=== PATIENT | male | born 1960 | race Caucasian/White ===

== ENCOUNTER 2018-10-04 19:09 | Emergency (ER) | payer SELFPAY ==
[~2018-10-04] VITALS: Ht 177.8 cm; Wt 56.7 kg
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
[2018-10-04] MEDS ORDERED: RX-HYDROCODONE/APAP 5/325 MG #4 TAB PK PO PRN (20:45)
[2018-10-04 21:03] VITALS: BP 135/80
== END 2018-10-04 21:05 | disposition home or self-care (01) ==
LOC: ER 19:11
DX: S80.02XA Contusion of left knee, initial encounter (principal); S40.012A Contusion of left shoulder, initial encounter; V43.52XA Car driver injured in collision with other type car in traffic accident, initial encounter
CPT/HCPCS: 70450; 71045; 72125; 73030; 73562